=== PATIENT | male | born 1950 | race Caucasian/White ===

== ENCOUNTER 2020-01-06 11:17 | Emergency (ER) | payer MEDICARE | END 2020-01-06 12:00 | disposition home or self-care (01) | LOC: BURERS 11:17 | DX: K43.9 Ventral hernia without obstruction or gangrene (principal); I10 Essential (primary) hypertension; F17.210 Nicotine dependence, cigarettes, uncomplicated; Z79.899 Other long term (current) drug therapy | CPT/HCPCS: 99283 ==

== ENCOUNTER 2021-04-13 11:05 | Emergency (ER) | payer MEDICARE ==
[2021-04-13] MEDS ORDERED: Ketorolac Tromethamine 30 MG/ML VIAL ONE (11:19)
== END 2021-04-13 12:23 | disposition home or self-care (01) ==
LOC: BURERS 11:05
DX: S22.42XA Multiple fractures of ribs, left side, initial encounter for closed fracture (principal); I10 Essential (primary) hypertension; F17.210 Nicotine dependence, cigarettes, uncomplicated; W18.30XA Fall on same level, unspecified, initial encounter
CPT/HCPCS: 71250; 96372; J1885

== ENCOUNTER 2021-04-16 09:19 | Emergency (ER) | payer MEDICARE | END 2021-04-16 10:17 | disposition home or self-care (01) | LOC: BURERS 09:19 | DX: S22.32XA Fracture of one rib, left side, initial encounter for closed fracture (principal); I10 Essential (primary) hypertension; F17.210 Nicotine dependence, cigarettes, uncomplicated; W18.30XA Fall on same level, unspecified, initial encounter | CPT/HCPCS: 99283 ==

== ENCOUNTER 2021-05-01 09:56 | Emergency (ER) | payer MEDICARE | END 2021-05-01 10:21 | disposition home or self-care (01) | LOC: BURERS 09:56 | DX: G57.12 Meralgia paresthetica, left lower limb (principal); I10 Essential (primary) hypertension; F17.210 Nicotine dependence, cigarettes, uncomplicated | CPT/HCPCS: 99283 ==